=== PATIENT | female | born 1955 | race African-American/Black ===

== ENCOUNTER 2019-03-02 18:01 | Inpatient (IN) | payer OTHER ==
[~2019-03-02] VITALS: Ht 162.6 cm; Wt 83.9 kg
[2019-03-02] MEDS ORDERED: albuterol (18:12)
[2019-03-02] MEDS ORDERED: METHYLPREDNISOLONE SOD SUCC 125 MG/2 ML VIAL IV STA (18:18)
[2019-03-02] MEDS ORDERED: MAGNESIUM 2 G PREMIX 50 ML IV STA (18:18)
[2019-03-02] MEDS ORDERED: SODIUM CHLORIDE 0.9% 1,000 ML IV ONE (18:18)
[2019-03-02] MEDS ORDERED: ALBUTEROL (0.083%) 2.5MG/3ML NEB HHN STA (18:18)
[2019-03-02] MEDS ORDERED: IPRATROPIUM BROMIDE (0.02%) 0.5MG/2.5ML NEB HHN STA (18:18)
[2019-03-02 18:50] LABS: CHLORIDE 108 mEq/L (98-107)
[2019-03-02 18:54] LABS: BASOPHILS % 0.6 % (0.0-2.0); EOSINOPHILS % 3.6 % (0.0-5.0); HEMATOCRIT. 35.9 % (36.0-48.0); HEMOGLOBIN. 11.7 g/dL (12.0-16.0); LYMPHOCYTES % 25.7 % (20.0-50.0); MEAN CORPUSCULAR HEMOGLOBIN 29.5 pg (28.0-32.0); MEAN CORPUSCULAR VOLUME 90.5 fL (81.0-99.0); MEAN PLATELET VOLUME 7.5 fl (7.4-10.4); MONOCYTES % 5.8 % (2.0-8.0); NEUTROPHILS % 64.3 % (40.0-76.0); PLATELET 443 x1000/uL (130-400); RED BLOOD CELL COUNT 3.97 mill/uL (4.2-5.4); RED CELL DISTRIBUTION WIDTH 13.7 % (11.6-14.6)
[2019-03-02] MEDS ORDERED: METHYLPREDNISOLONE SOD SUCC 125 MG/2 ML VIAL IV ONE (20:00)
[2019-03-02 20:52] LABS: PLATELET ESTIMATE INCREASED
[2019-03-03 05:00] VITALS: BP 130/68
[2019-03-03] MEDS ORDERED: CLAR10 PO (06:21)
[2019-03-03] MEDS ORDERED: FLUT1DIS2 IH (06:21)
[2019-03-03] MEDS ORDERED: FLUT9.9S16 NS (06:21)
[2019-03-03] MEDS: METHYLPREDNISOLONE SOD SUCC 40 MG/ML VIAL IV SCH ×2 (06:38→13:55)
[2019-03-03] MEDS ORDERED: OMEPRAZOLE 20MG CAPSULE EXTENDED RELEASE PO SCH (07:10)
[2019-03-03 08:00] VITALS: BP 116/59
[2019-03-03] MEDS ORDERED: KCL 20MEQ/100ML PREMIX 100 ML IV NR (08:00)
[2019-03-03] MEDS: IPRATROPIUM/ALBUTEROL 0.5-3(2.5)MG/3ML NEB HHN SCH ×2 (08:00→12:09)
[2019-03-03] MEDS ORDERED: ENOXAPARIN 40MG/0.4ML SYR SUBCUT SCH (09:00)
[2019-03-03 09:50] LABS: HEMATOCRIT 34.8 % (36.0-48.0); HEMOGLOBIN 11.3 g/dL (12.0-16.0); MEAN CORPUSCULAR HEMOGLOBIN 29.7 pg (28.0-32.0); MEAN CORPUSCULAR VOLUME 91.3 fL (81.0-99.0); PLATELET 476 x1000/uL (130-400); RED BLOOD CELL COUNT 3.82 mill/uL (4.2-5.4); RED CELL DISTRIBUTION WIDTH 13.6 % (11.6-14.6)
[2019-03-03 09:53] LABS: CHLORIDE 107 mEq/L (98-107)
[2019-03-03 10:07] LABS: LDL CHOLESTEROL 133 mg/dL (5-100)
[2019-03-03 10:08] LABS: CREATINE KINASE 141 IU/L (26-192)
[2019-03-03 10:12] LABS: CREATINE KINASE MB FRACTION 1.7 ng/mL (0.5-3.6); HDL CHOLESTEROL 69 mg/dL (40-59)
[2019-03-03 12:00] VITALS: BP 118/62
[2019-03-03 14:34] VITALS: BP 119/70
[2019-03-03 16:00] VITALS: BP 119/70
== END 2019-03-03 18:09 | disposition home or self-care (01) | DRG 189 ==
LOC: ER 18:01 → 8WST 20:47 → EDBEDREQ 20:54 → EDBEDREQTM 20:54 → ENRESERV 03-03 03:13
PROVIDERS: ADMIT Internal Medicine; ATTEND Internal Medicine
DX: J96.20 Acute and chronic respiratory failure, unspecified whether with hypoxia or hypercapnia (principal); J45.901 Unspecified asthma with (acute) exacerbation; D64.9 Anemia, unspecified; E78.5 Hyperlipidemia, unspecified; E87.6 Hypokalemia; J32.9 Chronic sinusitis, unspecified; Z82.49 Family history of ischemic heart disease and other diseases of the circulatory system; Z82.5 Family history of asthma and other chronic lower respiratory diseases; Z83.3 Family history of diabetes mellitus; Z88.8 Allergy status to other drugs, medicaments and biological substances; Z90.710 Acquired absence of both cervix and uterus
CPT/HCPCS: 36415; 71045; 80061; 82550; 82553; 83880; 84484; 85027; 93005; 94640; 94644; 96365; 96375; 99285; J1650; J2920; J2930; J3475; J3480; J7030; J7040; J7611; J7620